=== PATIENT | female | born 1995 ===

== ENCOUNTER 2017-04-01 12:52 | Emergency (ER) | payer OTHER ==
[2017-04-01 13:10] VITALS: BMI 25.0
[2017-04-01 13:13] VITALS: RESP 18; TEMP 97.1
[2017-04-01 13:49] LABS: VENOUS BLOOD GAS BASE EXCESS 1.6 mmol/L (0.0-2.0); VENOUS BLOOD GAS PO2 52 mm/Hg (30-55); VENOUS BLOOD PH 7.33 (7.32-7.43)
--- NOTE | 2017-04-01 14:31 | ED PDOC ---
Arrival/HPI - General Chief Complaint: Headache Time Seen by Provider: 04/01/17 13:00 Historian: Patient - History of Present Illness Narrative History of Present Illness (Text): 04/01/17 14:27 A 21 year old female presents to the emergency department complaining of a mild headache and dizziness. Patient states she woke up feeling fine and developed symptoms later throughout the day. Patient reports her mother noticed their stove was on this morning. She believes it could have possibly been left on over night. Patient is concerned for potential carbon monoxide poisoning. She denies any fire or visible smoke. Patient denies any fever, chills, nausea, vomiting, diarrhea, abdominal pain, urinary symptoms, chest pain, palpitations, shortness of breath, cough or any other complaints. Time/Duration: Prior to Arrival Symptom Course: Unchanged Quality: Other Context: Other Past Medical History - Provider Review Nursing Documentation Reviewed: Yes - Pulmonary Hx Asthma: Yes - Psychiatric Hx Substance Use: No - Anesthesia Hx Anesthesia: No Hx Anesthesia Reactions: No Hx Malignant Hyperthermia: No Family/Social History - Physician Review Nursing Documentation Reviewed: Yes Family/Social History: No Known Family HX Smoking Status: Never Smoked Hx Alcohol Use: No Hx Substance Use: No Allergies/Home Meds Allergies/Adverse Reactions: Allergies albuterol Allergy (Verified 04/01/17 13:10) RASH Home Medications: Home Meds Medication Instructions Recorded Confirmed No Known Home Med 04/01/17 04/01/17 Review of Systems - Review of Systems Constitutional: absent: Fevers, Night Sweats Eyes: absent: Vision Changes, Eye Pain ENT: absent: Hearing Changes Respiratory: absent: SOB, Cough Cardiovascular: absent: Chest Pain, Palpitations Gastrointestinal: absent: Abdominal Pain, Diarrhea, Nausea, Vomiting Genitourinary Female: absent: Dysuria, Frequency, Hematuria, Urine Output Changes Musculoskeletal: absent: Back Pain Skin: absent: Normal, Rash Neurological: Headache, Dizziness. absent: Focal Weakness Endocrine: absent: Polydipsia Physical Exam - Physical Exam Narrative Physical Exam (Text): Head: Atraumatic. Normocephalic. Eyes: PERRL. EOMI. Conjunctivae are not pale. ENT: Mucous membranes are moist and intact. Oropharynx is clear and symmetric. No facial swelling. No pain with eye movements. Neck: Supple. Full ROM. No JVD. No lymphadenopathy. Cardiovascular: Regular rate. Regular rhythm. No murmurs, rubs, or gallops. Distal pulses are 2+ and symmetric. Pulmonary/Chest: No evidence of respiratory distress. Clear to auscultation bilaterally. No wheezing, rales or rhonchi. Abdominal: Soft and non-distended. There is no tenderness. No rebound, guarding, or rigidity. No organomegaly. Good bowel sounds. Extremities: No edema. No cyanosis. No clubbing. Full range of motion in all extremities. No calf tenderness. Skin: Skin is warm and dry. No petechiae. No purpura. Neurological: Alert, awake. No motor or sensory deficits. No facial droop. Psychiatric: Good eye contact. Normal interaction, affect, and behavior. Vital Signs Reviewed: Yes Vital Signs Temp Pulse Resp BP Pulse Ox 04/01/17 15:46 62 18 132/68 100 04/01/17 13:12 97.1 F L 66 18 132/77 97 Temperature: Afebrile Blood Pressure: Normal Pulse: Regular Respiratory Rate: Normal Appearance: Positive for: Well-Appearing, Non-Toxic, Comfortable Pain Distress: None Mental Status: Positive for: Alert and Oriented X 3 Medical Decision Making ED Course and Treatment: 04/01/17 14:27 Impression: A 21 year old female with a mild headache and dizziness. Patient concerned for potential carbon monoxide poisoning. Plan: -- VBG -- Reassess and disposition Progress Notes: VBG reviewed. Carbon monoxide level uremarkable as patient is asymptomatic with no focal motor or sensory deficits. She was observed in ED with no respiratory distress or neurologic deficits noted. Advised assessment of fumes in home to ensure safety. Discharge instructions given. 04/01/17 20:00 - Lab Interpretations Lab Results: Lab Results 04/01/17 13:35: pO2 52, ABG Carboxyhemoglobin 2.5 H, POC ABG HHb (Measured) 10.1 H, ABG Methemoglobin 0.4, VBG pH 7.33, VBG pCO2 54.0, VBG HCO3 28.5 H, VBG O2 Sat (Calc) 89.6 H, VBG Base Excess 1.6, VBG Hgb O2 Saturation 87.0 L, Hemoglobin 12.6 - Scribe Statement The provider has reviewed the documentation as recorded by the Josie Osborne Provider Scribe Attestation: All medical record entries made by the Scribe were at my direction and personally dictated by me. I have reviewed the chart and agree that the record accurately reflects my personal performance of the history, physical exam, medical decision making, and the department course for this patient. I have also personally directed, reviewed, and agree with the discharge instructions and disposition. Disposition/Present on Arrival - Present on Arrival Any Indicators Present on Arrival: No History of DVT/PE: No History of Uncontrolled Diabetes: No Urinary Catheter: No History of Decub. Ulcer: No History Surgical Site Infection Following: None - Disposition Have Diagnosis and Disposition been Completed?: Yes Diagnosis: Headache, Inhalation of noxious fumes Disposition: HOME/ ROUTINE Disposition Time: 14:30 Patient Plan: Discharge Condition: GOOD Additional Instructions: For any headaches, any visual symptoms, any chest pain, any palpitations, any shortness of breath, any abdominal pain, any nausea or vomiting, any numbness or weakness, get rechecked. Follow-up with your primary care doctor in 1-2 days. Have your household checked for carbon monoxide levels/gas leaks. Referrals: PCP,NO [Primary Care Provider] - Follow up with primary
[2017-04-01 15:48] VITALS: BP 132/68; PULSE 62; O2SAT 100
== END 2017-04-01 15:46 | disposition home or self-care (01) ==
LOC: MERGE 12:52 → ED 12:52
DX: T59.891A Toxic effect of other specified gases, fumes and vapors, accidental (unintentional), initial encounter (principal); R51 Headache; Y92.008 Other place in unspecified non-institutional (private) residence as the place of occurrence of the external cause